=== PATIENT | female | born 1975 | race Hispanic/Latino ===

== ENCOUNTER 2024-02-14 08:07 | Emergency (ER) | payer OTHER ==
--- NOTE | 2024-02-14 08:37 | RAD REPORT ---
EXAMINATION: ONE VIEW CHEST XR CLINICAL INDICATION: CHEST PAIN TECHNIQUE: Frontal chest projection is submitted. Examination is limited by patient positioning and t echnique. COMPARISON: No prior exam. FINDINGS: The lungs are well inflated and clear. The heart is normal in size. No displaced fractures identified . IMPRESSION: No acute intrathoracic abnormalities.
[2024-02-14] MEDS ORDERED: IPRATROPIUM BROM 0.5MG/2.5ML ONE (08:51)
[2024-02-14] MEDS ORDERED: ALBUTEROL 2.5 MG/3 ML NEB SOL ONE (08:51)
[2024-02-14] MEDS ORDERED: CEFTRIAXONE 1000 MG/VIAL ONE (08:51)
[2024-02-14] MEDS ORDERED: NA CHLORIDE 0.9% 2,000 ML ONE (08:51)
[2024-02-14 09:26] LABS: Absolute Basophils 0.1 K/uL (0-0.5); Absolute Lymphocytes (CBC) 4.5 K/uL (0.7-4.9); Absolute Monocytes 0.8 K/uL (0.1-1.3); Absolute Neutrophil 8.5 K/uL (1.8-8.0); Basophils % 0.5 % (0-1.3); Eosinophils % 0.3 % (0-4.4); Hematocrit 43.2 % (36.0-45.0); Lymphocytes % 32.4 % (15.3-44.8); MCH 28.1 pg (27.0-35.0); MCHC 32.5 g/dL (32.0-36.0); MCV 86.3 fL (80-100); MPV 8.1 fL (7.6-11.3); Neutrophils % 60.8 % (41.7-73.7); Nucleated Red Blood Cells % 0.1 % (0-0); Platelets 269 thou/uL (152-406); Red Cell Distribution Width 14.8 % (12.1-15.2)
[2024-02-14 09:37] LABS: PT Prothrombin Time 11.5 SECONDS (9.4-12.5); Protime INR 1.03
[2024-02-14 10:22] LABS: Anion Gap 10.4 mEq/L (5.0-15.0); BUN Blood Urea Nitrogen 14 mg/dL (7-18); Bicarbonate 24 mEq/L (21-32); Glomerular Filtration Rate 108 ml/min (=/>90); Glucose Level 139 mg/dL (74-106); NT PRO-BNP 14 pg/mL (<125); Potassium 3.4 mEq/L (3.5-5.1); Sodium Level 137 mEq/L (136-145)
[2024-02-14 10:25] LABS: Troponin High Sensitivity < 3.0 pg/mL (<58.9)
--- NOTE | 2024-02-14 12:58 | ER ---
Nurse's Notes [facility] Name: Dinora Almaguer Age: 48 yrs Sex: Female : 1975 Arrival Date: 02/14/2024 Time: 08:07 Bed 8 Private MD: Diagnosis: Viral infection, unspecified;Dehydration Presentation: 02/13 08:15 Chief complaint: Patient states: recently diagnosed with the Flu, now feeling SOB and aa5 has upper back pain. Reports non-productive cough. 08:15 Coronavirus screen: cough unrelated to allergies, shortness of breath. Ebola Screen: aa5 Patient denies travel to an Ebola-affected area in the 21 days before illness onset. Initial Sepsis Screen: Does the patient meet any 2 criteria? Systolic BP < 90 mmHg. Initial Sepsis Screen: Does the patient have a suspected source of infection?. Risk Assessment: Do you want to hurt yourself or someone else? Patient reports no desire to harm self or others. Onset of symptoms was February 14, 2024. 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 - Infectious Disease History:: Denies. - Social history:: Smoking status: Patient denies any tobacco usage or history of. Screenin:30 [facility] ED Fall Risk Assessment (Adult) History of falling in the last 3 months, aa5 including since admission No falls in past 3 months (0 pts) Confusion or Disorientation No (0 pts) Intoxicated or Sedated No (0 pts) Impaired Gait No (0 pts) Mobility Assist Device Used No (0 pt) Altered Elimination No (0 pt) Score/Fall Risk Level 0 - 2 = Low Risk Oriented to surroundings, Maintained a safe environment, Educated pt \T\ family on fall prevention, incl call for assistance when getting out of bed. Abuse screen: Denies threats or abuse. Nutritional screening: No deficits noted. Tuberculosis screening: No symptoms or risk factors identified. Assessment: 08:15 General: Appears uncomfortable, Behavior is calm, cooperative. Pain: Complains of pain aa5 in thoracic area Pain does not radiate. Pain currently is 8 out of 10 on a pain scale. Quality of pain is described as heavy, sharp, Is continuous. Neuro: Level of Consciousness is awake, alert, obeys commands, Oriented to person, place, time, situation. Cardiovascular: Heart tones S1 S2 present Rhythm is regular. Respiratory: Reports shortness of breath at rest on exertion cough that is non-productive, Airway is patent Respiratory effort is even, unlabored, Respiratory pattern is regular, symmetrical, Breath sounds with wheezes bilaterally. the patient has moderate shortness of breath. GI: No signs and/or symptoms were reported involving the gastrointestinal system. Abdomen is round non-distended. : No signs and/or symptoms were reported regarding the genitourinary system. EENT: Reports nasal congestion nasal discharge that is watery. Derm: Skin is pink, warm \T\ dry. Musculoskeletal: Range of motion: intact in all extremities. 09:25 Reassessment: Patient is alert, oriented x 3, equal unlabored respirations, skin aa5 warm/dry/pink. states SOB has improved after neb tx. . 10:08 Reassessment: Patient is alert, oriented x 3, equal unlabored respirations, skin aa5 warm/dry/pink. 11:45 Reassessment: Patient is alert, oriented x 3, equal unlabored respirations, skin aa5 warm/dry/pink. Patient denies pain at this time. Patient states feeling better. General: Appears comfortable. 11:50 Reassessment: Phlebotomy to collect repeat lactate at 1156 (2hr post initial), pt aa5 aware. . 12:30 Reassessment: Patient is alert, oriented x 3, equal unlabored respirations, skin aa5 warm/dry/pink. 13:05 Reassessment: Patient is alert, oriented x 3, equal unlabored respirations, skin aa5 warm/dry/pink. Vital Signs: 08:15 BP 81 / 61; Pulse 84; Resp 26 S; Temp 97.7(O); Pulse Ox 100% on R/A; Weight 101.6 kg aa5 (R); Height 5 ft. 4 in. (R); Pain 8/10; 08:37 BP 129 / 82; ec2 08:37 Pulse 88; Pulse Ox 99% ; ec2 09:28 BP 147 / 69; Pulse 95; Resp 22 S; Pulse Ox 98% on R/A; aa5 10:30 BP 126 / 80; Pulse 84; Resp 16; Pulse Ox 97% ; me1 10:45 BP 138 / 68; Pulse 91; ec2 11:30 BP 132 / 72; Pulse 75; Resp 17; Pulse Ox 98% ; me1 12:30 BP 129 / 85; Pulse 83; Resp 16; Temp 98.4; Pulse Ox 100% ; me1 12:52 BP 109 / 85; Pulse 86; ec2 08:15 Body Mass Index 38.45 (101.60 kg, 162.56 cm) aa5 08:15 Pain Scale: Adult aa5 ED Course: 08:09 Patient arrived in ED. ra3 08:10 Vishal Strong MD is Attending Physician. ec2 08:12 Ronel Sommer, CELI is Primary Nurse. aa5 08:15 Arm band placed on Patient placed in an exam room, on a stretcher. aa5 08:15 Patient has correct armband on for positive identification. Placed in gown. Bed in low aa5 position. Call light in reach. Side rails up X2. Adult w/ patient. Client placed on continuous cardiac and pulse oximetry monitoring. NIBP monitoring applied. color television console monitor on. Pulse ox on. NIBP on. 08:20 EKG done, by ED staff, reviewed by Vishal Strong MD. em1 08:23 Triage completed. aa5 08:30 XRAY Chest (1 view) In Process Unspecified. EDMS 09:08 First set of blood cultures drawn by me. aa5 09:08 Initial lab(s) drawn, by me, sent to lab. aa5 09:10 Inserted saline lock: 20 gauge in left antecubital area, using aseptic technique. aa5 Flushed with 10 mL NS. 09:20 Second set of blood cultures drawn by me. aa5 09:32 Patient maintains SpO2 saturation greater than 95% on room air. aa5 10:33 Warm blanket given. am7 13:05 No provider procedures requiring assistance completed. IV discontinued, intact, aa5 bleeding controlled, No redness/swelling at site. Pressure dressing applied. Administered Medications: 09:00 Drug: DuoNeb Nebulize (3:1) (2.5 mg - 0.5 mg) 3 ml Nebulizer once Route: Nebulizer; aa5 09:25 Follow up: Response: No adverse reaction; Marked relief of symptoms aa5 09:10 Drug: NS 0.9% IV 2000 ml IV at 1000 ml once; to be given as a bolus over 60 minutes aa5 Route: IV; Rate: 1000 ml; Site: left antecubital; 11:27 Follow up: IV Status: Completed infusion; IV Intake: 2000ml aa5 10:08 Drug: Rocephin IV 1 grams IV at bolus once; Given slow IV push per pharmacy aa5 instructions Route: IV; Rate: bolus; Site: left antecubital; 10:10 Follow up: Response: No adverse reaction; IV Status: Completed infusion me1 Medication: 09:32 VIS not applicable for this client. aa5 Intake: 11:27 IV: 2000ml; Total: 2000ml. aa5 Outcome: 12:57 Discharge ordered by . ec2 13:05 Discharged to home ambulatory, with significant other, aa5 13:05 Condition: stable 13:05 Discharge instructions given to patient, Instructed on discharge instructions, follow up and referral plans. medication usage, Demonstrated understanding of instructions, follow-up care, medications, Prescriptions given X 2, 13:15 Patient left the ED. aa5 Signatures: Dispatcher [employer] EDMS Fausto Riggs em1 Ronel Sommer, CELI RN aa5 Dee Corbin RN RN me1 Vishal Strong MD MD ec2 Analy Shelley ra3 Yun Augustine am7 Corrections: (The following items were deleted from the chart) 08:24 08:15 BP 81 / 61; Pulse 94bpm; Resp 26bpm; Spontaneous; Pulse Ox 100% RA; Temp 97.7F aa5 Oral; 101.6 kg Reported; Height 5 ft. 4 in. Reported; BMI: 38.4; Pain 8/10, Adult; aa5 09:29 09:28 BP 147 / 69; Pulse 95bpm; Resp 18bpm; Spontaneous; Pulse Ox 98% RA; aa5 aa5 :32 08:30 Patient has correct armband on for positive identification. Bed in low position. aa5 Call light in reach. Side rails up X2. Adult w/ patient. aa5 :32 08:30 Client placed on continuous cardiac and pulse oximetry monitoring. NIBP aa5 monitoring applied. color television console monitor on. Pulse ox on. NIBP on. aa5 09:34 08:15 Respiratory: Reports shortness of breath at rest on exertion cough that is aa5 non-productive, Airway is patent Respiratory effort is even, unlabored, Respiratory pattern is regular, symmetrical, the patient has moderate shortness of breath aa5 10:22 08:15 Patient has correct armband on for positive identification. Bed in low position. aa5 Call light in reach. Side rails up X2. Adult w/ patient. aa5
--- NOTE | 2024-02-14 12:58 | EDPHYS ---
Physician Documentation [facility] Name: Dinora Almaguer Age: 48 yrs Sex: Female : 1975 Arrival Date: 02/14/2024 Time: 08:07 Bed 8 Private MD: ED Physician Vishal Strong HPI: 02/13 08:35 This 48 yrs old Female presents to ER via Ambulatory with complaints of Back ec2 Pain, Shortness Of Breath. 08:35 Patient diagnosed with influenza 1 week ago today. Arrives today for cough and cold ec2 symptoms, difficulty breathing. Patient reports decreased p.o. intake and generally feeling unwell. Reports that she has been having increasing shortness of breath and she will prompted evaluation today.. 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 - Infectious Disease History:: Denies. - Social history:: Smoking status: Patient denies any tobacco usage or history of. ROS: 08:36 Constitutional: as per hpi ec2 Exam: 08:36 Constitutional: GEN: NAD Head: atraumatic Eyes: EOMI Ears: External ears are ec2 normal. CV: regular rate LUNGS: Slight tachypnea noted ABD: non-distended SKIN: no evidence of rashes MSK: no evidence of trauma Vital Signs: 08:15 BP 81 / 61; Pulse 84; Resp 26 S; Temp 97.7(O); Pulse Ox 100% on R/A; Weight 101.6 kg aa5 (R); Height 5 ft. 4 in. (R); Pain 8/10; 08:37 BP 129 / 82; ec2 08:37 Pulse 88; Pulse Ox 99% ; ec2 09:28 BP 147 / 69; Pulse 95; Resp 22 S; Pulse Ox 98% on R/A; aa5 10:30 BP 126 / 80; Pulse 84; Resp 16; Pulse Ox 97% ; me1 10:45 BP 138 / 68; Pulse 91; ec2 11:30 BP 132 / 72; Pulse 75; Resp 17; Pulse Ox 98% ; me1 12:30 BP 129 / 85; Pulse 83; Resp 16; Temp 98.4; Pulse Ox 100% ; me1 12:52 BP 109 / 85; Pulse 86; ec2 08:15 Body Mass Index 38.45 (101.60 kg, 162.56 cm) aa5 08:15 Pain Scale: Adult aa5 MDM: 08:16 Medical Screening Exam initiated ec2 08:22 ED course: EKG independently reviewed and interpreted by me, shows normal sinus rhythm, ec2 rate of 89, no acute ST segment elevations, intervals are nonactionable.. 08:36 Data reviewed: vital signs, nurses notes. ED course: Patient arrives today for ec2 evaluation of upper respiratory symptoms. Examination shows hypertensive individual with slight tachypnea noted. Will obtain a septic workup, empirically treat with ceftriaxone, give the patient DuoNeb for her shortness of breath and give the patient crystalloid as well.. 12:51 ED course: Patient with improving lactic acidosis.. ec2 12:52 ED course: On reassessment patient with improving tachycardia.. ec2 12:56 ED course: Patient with improving lactic acid, I instructed the patient regarding ec2 improving lab work, I discussed possible repeat however patient states marked improvement in symptoms and I will discharge home. I will prescribe her nausea medications as needed and I instructed her on the portance of continued fluid resuscitation. Return precautions given.. 02/13 08:16 Order name: Basic Metabolic Panel; Complete Time: 10:42 ec2 02/13 08:16 Order name: CBC with Diff; Complete Time: 10:02 ec2 02/13 08:16 Order name: NT PRO-BNP; Complete Time: 10:42 ec2 02/13 08:16 Order name: PT-INR; Complete Time: 09:39 ec2 02/13 08:16 Order name: Troponin HS; Complete Time: 10:42 ec2 02/13 08:32 Order name: Blood Culture Adult (2) ec2 02/13 08:32 Order name: Lactate w/ 2H reflex if indic.; Complete Time: 10:03 ec2 02/13 11:57 Order name: Ghost Lactate-NO COLLECT Timer; Complete Time: 12:01 EDMS 02/13 12:52 Order name: Lactate Sepsis 2 HR Follow-up; Complete Time: 12:56 EDMS 02/13 08:16 Order name: XRAY Chest (1 view); Complete Time: 09:39 ec2 02/13 08:16 Order name: Cardiac monitoring; Complete Time: 08:48 ec2 02/13 08:16 Order name: EKG - Nurse/Tech; Complete Time: 08:48 ec2 02/13 08:16 Order name: IV Saline Lock; Complete Time: 08:48 ec2 02/13 08:16 Order name: Labs collected and sent; Complete Time: 08:48 ec2 02/13 08:16 Order name: O2 Per Protocol; Complete Time: 08:48 ec2 02/13 08:16 Order name: O2 Sat Monitoring; Complete Time: 08:48 ec2 02/13 09:38 Order name: Labs - recollect needed: recollect the chemistries; Complete Time: 09:54 eb 02/13 10:45 Order name: Misc. Order: repeat lactate after fluids; Complete Time: 13:14 ec2 Administered Medications: 09:00 Drug: DuoNeb Nebulize (3:1) (2.5 mg - 0.5 mg) 3 ml Nebulizer once Route: Nebulizer; aa5 09:25 Follow up: Response: No adverse reaction; Marked relief of symptoms aa5 09:10 Drug: NS 0.9% IV 2000 ml IV at 1000 ml once; to be given as a bolus over 60 minutes aa5 Route: IV; Rate: 1000 ml; Site: left antecubital; 11:27 Follow up: IV Status: Completed infusion; IV Intake: 2000ml aa5 10:08 Drug: Rocephin IV 1 grams IV at bolus once; Given slow IV push per pharmacy aa5 instructions Route: IV; Rate: bolus; Site: left antecubital; 10:10 Follow up: Response: No adverse reaction; IV Status: Completed infusion me1 Disposition Summary: 02/14/24 12:57 Discharge Ordered Notes: Location: Home ec2 Condition: Stable ec2 Diagnosis - Viral infection, unspecified ec2 - Dehydration ec2 Followup: ec2 - With: Private Physician - When: - Reason: Re-evaluation by your physician Discharge Instructions: - Discharge Summary Sheet ec2 - Viral Illness, Adult ec2 Forms: - Work release form hb - Medication Reconciliation Form ec2 - Antibiotic Education ec2 - Prescription Opioid Use ec2 - Patient Portal Instructions ec2 - Leadership Thank You Letter ec2 Prescriptions: - albuterol sulfate 90 mcg/actuation Inhalation HFA Aerosol Inhaler - inhale 2 puff INHALATION route every 8 hours; 1 unit; Refills: 0, Product ec2 Selection Permitted - Zofran 4 mg Oral Tablet - take 1 tablet ORAL route every 12 hours As needed; 20 tablet; Refills: 0, ec2 Product Selection Permitted Signatures: Dispatcher [employer] EDLA Ronel Sommer RN RN aa5 Dunia Dukes Edwin, MD MD ec2 Dee Corbin RN me1 Corrections: (The following items were deleted from the chart) 08:17 08:16 BASIC METABOLIC PANEL+C.LAB.BRZ ordered. EDMS EDMS 08:17 08:16 CBC+H.LAB.BRZ ordered. EDMS EDMS 08:17 08:16 PROBNP+C.LAB.BRZ ordered. EDLA EDMS 08:17 08:16 PROTIME (+INR)+COAG.LAB.BRZ ordered. EDLA EDMS 08:17 08:16 Troponin High Sensitivity+C.LAB.BRZ ordered. EDLA EDMS 08:37 08:35 Patient diagnosed with influenza 1 week ago today. Arrives today for cough and ec2 cold symptoms, difficulty breathing. Patient reports decreased p.o. intake and generally feeling unwell.. ec2 12:55 11:29 LACTATE+C.LAB.BRZ ordered. EDLA EDMS
[2024-02-14 14:22] VITALS: TEMP 98.4; O2SAT 100
[2024-02-14 14:23] VITALS: BP 109/85
--- NOTE | 2024-02-17 11:43 | EKG ---
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
== END 2024-02-14 13:15 | disposition home or self-care (01) ==
LOC: ER 08:07
DX: B34.9 Viral infection, unspecified (principal); E86.0 Dehydration
CPT/HCPCS: 96361; 87040 ×2; 85025; 80048; 36415; 85610; 83605 ×2; 84484; 83880; 71045; 96374; 99285; J7613; J7644; J7030; J0696; 93005